=== PATIENT | female | born 1995 | race Two or more races ===

== ENCOUNTER 2024-07-23 21:03 | Emergency (ER) | payer OTHER ==
[~2024-07-23] VITALS: Ht 157.5 cm; Wt 71.7 kg
[~2024-07-23 21:03] MED LIST: FIORICET 50-321 EACH PO; GILTUSS TR TAB1 EACH PO; OSEL75CA PO; SEPTRA DS TABLE1 TAB PO; ZANTAC150 MG PO
== END 2024-07-23 23:09 | disposition home or self-care (01) ==
LOC: ER 21:06
DX: J06.9 Acute upper respiratory infection, unspecified (principal); Z20.822 Contact with and (suspected) exposure to COVID-19